=== PATIENT | male | born 1960 | race Caucasian/White ===

== ENCOUNTER 2020-11-12 10:14 | Emergency (ER) | payer SELFPAY ==
--- OUTSIDE RECORDS SUMMARY | 2020-11-12 10:17 | XMS REPORT | Continuity of Care Document ---
:1960 Author Organization [facility] t Address [address] [place] [address] [address] Care Team Providers Name Role Phone Angus Rivera Attending Clinician [phone] Problems This patient has no known problems. Allergies, Adverse Reactions, Alerts This patient has no known allergies or adverse reactions. Medications This patient has no known medications. Procedures This patient has no known procedures. Encounters Start End Encounter Admission Attending Care Care Encounter Source Date/Time Date/Time Type Type Clinicians Facility Department ID 2020-11-02 2020-11-[address] [facility] [id number] 00:00:00 00:00:00 [place] [id number] [place] [id number] 2020-10-26 2020-10-[address] [facility] [id number] 00:00:00 00:00:00 [place] [id number] [place] [id number] Results This patient has no known results.
--- NOTE | 2020-11-12 11:29 | EDPHYS ---
Physician Documentation [facility] Name: Jaylan Grady Age: 60 yrs Sex: Male : 1960 Arrival Date: 11/12/2020 Time: 10:17 Bed 12 Private MD: ED Physician Wayne Bernal HPI: 11/12 11:27 This 60 yrs old Male presents to ER via Ambulatory with complaints of pm1 splinter in finger. 11:27 The patient or guardian reports a puncture wound, wood splinter. The complaints affect pm1 the dorsal aspect of distal phalanx of right ring finger. Context: The problem was sustained outdoors, resulted from cutting back trees and shrubs with machete. Onset: The symptoms/episode began/occurred today. Modifying factors: The symptoms are alleviated by nothing, the symptoms are aggravated by nothing. Associated signs and symptoms: Pertinent negatives: cyanosis distally, decreased sensation distally, numbness distally, tingling distally. Severity of symptoms: in the emergency department the symptoms are unchanged, patient was unable to remove it by himself. Historical: - Allergies: 10:28 No Known Allergies; ll1 - PMHx: 10:28 Hypertension; hyperthyroidism; ll1 - PSHx: 10:28 R ACL repair; ll1 - Immunization history:: Flu vaccine is not up to date. Last tetanus immunization: unknown. - Social history:: Smoking status: Patient reports the use of cigarette tobacco products, smokes one pack cigarettes per day. ROS: 11:27 Constitutional: Negative for fever, chills, and weight loss, Cardiovascular: Negative pm1 for chest pain, palpitations, and edema, Respiratory: Negative for shortness of breath, cough, wheezing, and pleuritic chest pain, MS/Extremity: Negative for injury and deformity. 11:27 Neuro: Negative for headache, weakness, numbness, tingling, and seizure. 11:27 Skin: Positive for puncture, of the dorsal aspect of distal phalanx of right ring finger. Exam: 11:27 Constitutional: This is a well developed, well nourished patient who is awake, alert, pm1 and in no acute distress. Head/Face: Normocephalic, atraumatic. 11:27 Cardiovascular: Exam negative for acute changes, Rate: normal, Rhythm: regular, Pulses: no pulse deficits are appreciated. 11:27 Respiratory: Exam negative for acute changes, respiratory distress, shortness of breath. 11:27 Musculoskeletal/extremity: Extremities: grossly normal except: noted in the dorsal aspect of distal phalanx of right ring finger: puncture, There is no evidence of decreased ROM, deformity, the right hand Sensation intact. 11:27 Skin: Appearance: normal except for affected area, injury, puncture(s), that are superficial, of the dorsal aspect of distal phalanx of right ring finger, Large splinter just under skin that is not removal with tweezers. Vital Signs: 10:25 BP 115 / 84; Pulse 64; Resp 17; Temp 98.0; Pulse Ox 95% ; Weight 68.04 kg; Height 6 ft. ll1 0 in. (182.88 cm); Pain 6/10; 11:42 BP 132 / 75; Pulse 57; Resp 18; Pulse Ox 97% on R/A; Pain 0/10; sr5 10:25 Body Mass Index 20.34 (68.04 kg, 182.88 cm) ll1 Procedures: 11:27 Foreign Body Removal: sliver of wood, from the right dorsal aspect of distal phalanx of pm1 right fourth finger, by incising to remove, using lidocaine 1% without epinephrine to anesthesize the area, Dressinx4s were used to dress the wound, The patient tolerated the removal well. MDM: 10:35 Patient medically screened. [facility] 11:27 Data reviewed: vital signs. Data interpreted: Pulse oximetry: on room air is 95 %. pm1 Interpretation: normal. Counseling: I had a detailed discussion with the patient and/or guardian regarding: the historical points, exam findings, and any diagnostic results supporting the discharge/admit diagnosis, the need for outpatient follow up, a family practitioner, to return to the emergency department if symptoms worsen or persist or if there are any questions or concerns that arise at home. 11/12 10:56 Order name: Dressing - Wound; Complete Time: 11:13 pm1 11/12 10:56 Order name: Gloves, Sterile; Complete Time: 11:13 pm1 11/12 10:56 Order name: Setup Suture Tray; Complete Time: 11:13 pm1 Administered Medications: 11:20 Drug: Lidocaine (1 %) 5 ml {Note: administered by JURGEN Martinez into injured area.} sr5 Volume: 5 ml; Route: Infiltration; 11:38 Drug: Tetanus-Diphtheria Toxoid Adult 0.5 ml {Event Decorator: [employer]. Exp: sr5 11/03/2021. Lot #: [id number]. } Route: IM; Site: right deltoid; Disposition: 11/13 07:24 Co-signature as Attending Physician, Wayne Bernal MD I agree with the assessment and pauline plan of care. Disposition: 11/12/20 11:29 Discharged to Home. Impression: Puncture wound with foreign body of right ring finger without damage to nail. - Condition is Stable. - Discharge Instructions: Puncture Wound. - Prescriptions for Keflex 500 mg Oral Capsule - take 1 capsule by ORAL route every 6 hours for 10 days; 40 capsule. - Medication Reconciliation Form, Thank You Letter, Antibiotic Education, Prescription Opioid Use form. - Follow up: Emergency Department; When: As needed; Reason: Worsening of condition. Follow up: Private Physician; When: 2 - 3 days; Reason: Recheck today's complaints, Continuance of care, Re-evaluation by your physician. Follow up: Cecilio Gomes MD; When: 2 - 3 days; Reason: Recheck today's complaints, Continuance of care, Re-evaluation by your physician. - Problem is new. - Symptoms have improved. Signatures: Wayne Bernal MD MD cha Marinas, Patrick, NP GIS ANALYST DEVELOPER pm1 Zaid Montaño RN RN sr5 Ino Valenzuela RN RN ll1 Corrections: (The following items were deleted from the chart) 11/12 11:29 11:29 11/12/2020 11:29 Discharged to Home. Impression: Puncture wound with foreign body pm1 of right middle finger without damage to nail. Condition is Stable. Forms are Medication Reconciliation Form, Thank You Letter, Antibiotic Education, Prescription Opioid Use. Follow up: Emergency Department; When: As needed; Reason: Worsening of condition. Follow up: Private Physician; When: 2 - 3 days; Reason: Recheck today's complaints, Continuance of care, Re-evaluation by your physician. Problem is new. Symptoms have improved. pm1 11:48 11:29 11/12/2020 11:29 Discharged to Home. Impression: Puncture wound with foreign body sr5 of right middle finger without damage to nail. Condition is Stable. Discharge Instructions: Puncture Wound. Prescriptions for Keflex 500 mg Oral Capsule - take 1 capsule by ORAL route every 6 hours for 10 days; 40 capsule. and Forms are Medication Reconciliation Form, Thank You Letter, Antibiotic Education, Prescription Opioid Use. Follow up: Emergency Department; When: As needed; Reason: Worsening of condition. Follow up: Private Physician; When: 2 - 3 days; Reason: Recheck today's complaints, Continuance of care, Re-evaluation by your physician. Follow up: Cecilio Gomes; When: 2 - 3 days; Reason: Recheck today's complaints, Continuance of care, Re-evaluation by your physician. Problem is new. Symptoms have improved. pm1 17:30 11:27 Foreign Body Removal: sliver of wood, from the right dorsal aspect of distal pm1 phalanx of right middle finger, by incising to remove, using lidocaine 1% without epinephrine to anesthesize the area, Dressinx4s were used to dress the wound, The patient tolerated the removal well, pm1 19:06 11:48 11/12/2020 11:29 Discharged to Home. Impression: Puncture wound with foreign body pm1 of right middle finger without damage to nail. Condition is Stable. Discharge Instructions: Puncture Wound. Prescriptions for Keflex 500 mg Oral Capsule - take 1 capsule by ORAL route every 6 hours for 10 days; 40 capsule. and Forms are Medication Reconciliation Form, Thank You Letter, Antibiotic Education, Prescription Opioid Use. Follow up: Emergency Department; When: As needed; Reason: Worsening of condition. Follow up: Private Physician; When: 2 - 3 days; Reason: Recheck today's complaints, Continuance of care, Re-evaluation by your physician. Follow up: Cecilio Gomes; When: 2 - 3 days; Reason: Recheck today's complaints, Continuance of care, Re-evaluation by your physician. Problem is new. Symptoms have improved. sr5 19:07 19:06 11/12/2020 11:29 Discharged to Home. Impression: Puncture wound with foreign body pm1 of right ring finger without damage to nail. Condition is Stable. Discharge Instructions: Puncture Wound. Prescriptions for Keflex 500 mg Oral Capsule - take 1 capsule by ORAL route every 6 hours for 10 days; 40 capsule. and Forms are Medication Reconciliation Form, Thank You Letter, Antibiotic Education, Prescription Opioid Use. Follow up: Emergency Department; When: As needed; Reason: Worsening of condition. Follow up: Private Physician; When: 2 - 3 days; Reason: Recheck today's complaints, Continuance of care, Re-evaluation by your physician. Follow up: Cecilio Gomes; When: 2 - 3 days; Reason: Recheck today's complaints, Continuance of care, Re-evaluation by your physician. Problem is new. Symptoms have improved. pm1
--- NOTE | 2020-11-12 11:29 | ER ---
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 R hand ll1 4th digit pain, swelling right near nailbed. States he believes there is a splinter stuck in his finger. Abrasion noted to 2nd and 3rd digits. No active bleeding. States he took one splinter out already. Coronavirus screen: Client denies travel out of the [place] in the last 14 days. At this time, the client does not indicate any symptoms associated with coronavirus-19. Ebola Screen: Patient denies travel to an Ebola-affected area in the 21 days before illness onset. Initial Sepsis Screen: Does the patient meet any 2 criteria? No. Patient's initial sepsis screen is negative. Does the patient have a suspected source of infection? Yes: Skin breakdown/wound. Risk Assessment: Do you want to hurt yourself or someone else? Patient reports no desire to harm self or others. Onset of symptoms was November 12, 2020. 10:25 Method Of Arrival: Ambulatory ll1 10:25 Acuity: RAO 4 ll1 Historical: - Allergies: 10:28 No Known Allergies; ll1 - PMHx: 10:28 Hypertension; hyperthyroidism; ll1 - PSHx: 10:28 R ACL repair; ll1 - Immunization history:: Flu vaccine is not up to date. Last tetanus immunization: unknown. - Social history:: Smoking status: Patient reports the use of cigarette tobacco products, smokes one pack cigarettes per day. Screenin:47 Nutritional screening: No deficits noted. Tuberculosis screening: No symptoms or risk sr5 factors identified. Fall Risk None identified. Assessment: 11:42 General: Appears in no apparent distress. Behavior is calm, cooperative. Pain: sr5 Complains of pain in right hand and dorsal aspect of distal phalanx of right middle finger. Neuro: No deficits noted. Cardiovascular: No deficits noted. Respiratory: No deficits noted. GI: No deficits noted. : No deficits noted. EENT: No deficits noted. Derm: Reports visible foreign body noted in RIGHT middle finger, near nail bed. Musculoskeletal: No deficits noted. Vital Signs: 10:25 BP 115 / 84; Pulse 64; Resp 17; Temp 98.0; Pulse Ox 95% ; Weight 68.04 kg; Height 6 ft. ll1 0 in. (182.88 cm); Pain 6/10; 11:42 BP 132 / 75; Pulse 57; Resp 18; Pulse Ox 97% on R/A; Pain 0/10; sr5 10:25 Body Mass Index 20.34 (68.04 kg, 182.88 cm) ll1 ED Course: 10:17 Patient arrived in ED. am2 10:27 Triage completed. ll1 10:28 Arm band placed on. ll1 10:33 Tee Martinez NP is PHCP. pm1 10:33 Wayne Bernal MD is Attending Physician. pm1 11:29 Cecilio Gomes MD is Referral Physician. pm1 11:38 Assist provider with foreign body removal using scalpel Set up for procedure. Performed sr5 by Tee Martinez VALVE SETTER Dressed with triple antibiotic ointment, nonadherent dressing, gauze Patient tolerated well. Patient did not have IV access during this emergency room visit. 11:48 Call light in reach. sr5 Administered Medications: 11:20 Drug: Lidocaine (1 %) 5 ml {Note: administered by JURGEN Martinez into injured area.} sr5 Volume: 5 ml; Route: Infiltration; 11:38 Drug: Tetanus-Diphtheria Toxoid Adult 0.5 ml {Grocery Deliverer: [employer]. Exp: sr5 11/03/2021. Lot #: [id number]. } Route: IM; Site: right deltoid; Outcome: 11:29 Discharge ordered by . pm1 11:38 Discharged to home ambulatory. sr5 11:38 Condition: good 11:38 Discharge instructions given to patient, Instructed on discharge instructions, follow up and referral plans. wound care, Demonstrated understanding of instructions, follow-up care, wound care. 11:48 Patient left the ED. sr5 19:07 Patient left the ED. pm1 Signatures: Tee Martinez NP VALVE SETTER pm1 Zaid Montaño RN RN sr5 Tanya Smith am2 Ino Valenzuela RN RN ll1
[2020-11-12] MEDS ORDERED: LIDOCAINE 1% MPF 5 ML VIAL ONE (11:33)
[2020-11-12] MEDS ORDERED: TETANUS & DIPHTHERIA TOX,ADULT 0.5 ML VIAL ONE (11:34)
[2020-11-12 11:56] VITALS: TEMP 98
[2020-11-12 11:57] VITALS: BP 132/75; O2SAT 97
== END 2020-11-12 19:07 | disposition home or self-care (01) ==
LOC: ER 10:14
PROC: 0JCJ0ZZ Extirpation of Matter from Right Hand Subcutaneous Tissue and Fascia, Open Approach (ICD-10-PCS; principal; 2020-11-12)
DX: S61.244A Puncture wound with foreign body of right ring finger without damage to nail, initial encounter (principal); I10 Essential (primary) hypertension; F17.210 Nicotine dependence, cigarettes, uncomplicated; Z23 Encounter for immunization
CPT/HCPCS: 90471; 90714; 99283